=== PATIENT | male | born 2000 | race Caucasian/White ===

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

== ENCOUNTER 2022-05-04 10:22 | Outpatient (CLI) | payer OTHER, BC ==
[2022-05-04 22:48] LABS: CHLAMYDIA TRACHOMATIS DNA NEGATIVE (NEGATIVE); NEISSERIA GONORRHOEAE DNA NEGATIVE (NEGATIVE)
[2022-05-05 06:10] LABS: HIV SCREEN 4TH GENERATION Non Reactive (Non Reactive)
[2022-05-05 08:09] LABS: RPR Non Reactive (Non Reactive)
== END 2022-05-04 10:23 | disposition home or self-care (01) ==
LOC: LAB.S 10:22
PROVIDERS: ATTEND Physician Assistant
DX: R21 Rash and other nonspecific skin eruption (principal); R30.0 Dysuria; Z72.51 High risk heterosexual behavior
CPT/HCPCS: 81599; 86592; 86694; 86695; 86696; 87086; 87389; 87491; 87591; 87661